=== PATIENT | female | born 1960 | race Caucasian/White ===

== ENCOUNTER 2019-02-15 18:31 | Emergency (ER) | payer OTHER ==
--- NOTE | 2019-02-15 19:31 | ERPHSYRPT ---
- History of Present Illness Time Seen by Provider: 02/15/19 19:16 Historian: patient Exam Limitations: no limitations Patient Subjective Stated Complaint: chest pain accross chest and accross back Triage Nursing Assessment: patient is alert and oriented x3, ambulates by self , lung sounds clear, hearts sounds strong, bowel sounds present x4, radial pulsesequal bilateral, pedal pulses present. Physician History: This is a 58-year-old white female who states that she's had a chronic recurrent GI bleed with history of diabetes type 2, congestive heart failure, GI bleed, coronary artery disease arrives with complaint of pain across her upper chest radiating to her left shoulder began today at about 9:00 last about an hour went away than one hour prior to arrival began having pain again patient states that she has had similar pain when her hemoglobin goes down she states she's gone down to 3 or 5 in the past with her hemoglobin. He states he has been short of breath no nausea no vomiting she does state that she feels shaky. Patient states she did not take any aspirin because she's been having a chronic and recurrent GI bleed. Past medical history includes diabetes type 2, congestive heart failure, GI bleed, coronary artery disease Past surgical history includes tonsillectomy, internal defibrillator, appendix, colon resection, hernia repair, , tubal ligation, CABG Social history denies tobacco alcohol or illicit drug use. Timing/Duration: today (9 AM today) Activities at Onset: none Quality: pressure Location: other (upper chest radiating to left shoulder) Severity of Pain-Max: moderate Severity of Pain-Current: mild Associated Symptoms: shortness of breath, No vomiting, No palpitations, No heartburn, No abdominal pain, No cough, No diaphoresis, No chills, No fever, No fatigue, No weakness, No swelling/lump in chest, No syncope, No rash, No headache, No dizziness, No edema Prior Chest Pain/Cardiac Workup: cardiac cath Nitro Today/Relief: no nitro taken today Aspirin Treatment Today: no aspirin today Allergies/Adverse Reactions: codeine Allergy (Verified 02/15/19 18:35) Hx Tetanus, Diphtheria Vaccination/Date Given: Yes Hx Influenza Vaccination/Date Given: Yes Hx Pneumococcal Vaccination/Date Given: Yes Immunizations Up to Date: Yes - Review of Systems Constitutional: No Fever, No Chills Eyes: No Symptoms Ears, Nose, & Throat: No Symptoms Respiratory: Dyspnea, No Cough, No Cyanosis, No Dyspnea on Exertion (MATTHEWS), No Stridor Cardiac: Chest Pain, No Edema, No Palpitations, No Syncope, No Orthopnea, No PND Abdominal/Gastrointestinal: No Abdominal Pain, No Nausea, No Vomiting, No Diarrhea Genitourinary Symptoms: No Dysuria Musculoskeletal: No Back Pain, No Neck Pain Skin: No Rash Neurological: No Dizziness, No Focal Weakness, No Sensory Changes Psychological: No Symptoms Endocrine: No Symptoms All Other Systems: Reviewed and Negative - Past Medical History Pertinent Past Medical History: Yes Cardiac History: Congestive Heart Failure, Coronary Artery Disease Endocrine Medical History: Diabetes Type II GI Medical History: GI Bleed - Past Surgical History Past Surgical History: Yes Cardiac: Internal Defibrillator Gastrointestinal: Appendectomy, Colon Resection, Hernia Repair Female Surgical History: Section, Tubal Ligation - Social History Smoking Status: Former smoker Drug Use: none Patient Lives Alone: No - Female History Hx Now: No - Nursing Vital Signs Nursing Vital Signs: Initial Vital Signs Temperature 98.6 F 02/15/19 18:32 Pulse Rate 72 02/15/19 18:32 Respiratory Rate 16 02/15/19 18:32 Blood Pressure 173/72 02/15/19 18:32 O2 Sat by Pulse Oximetry 98 02/15/19 18:32 Pain Scale Pain Intensity 8 - Physical Exam General Appearance: alert Eye Exam: PERRL/EOMI, eyes nml inspection Ears, Nose, Throat Exam: normal ENT inspection, moist mucous membranes Neck Exam: normal inspection, non-tender, supple, full range of motion Respiratory Exam: normal breath sounds, lungs clear, No respiratory distress Cardiovascular Exam: regular rate/rhythm, normal heart sounds, capillary refill <2 sec Gastrointestinal/Abdomen Exam: soft, No tenderness, No mass Back Exam: normal inspection Extremity Exam: normal inspection, normal range of motion Neurologic Exam: alert, oriented x 3, cooperative, television agent II-XII nml as tested, normal mood/affect, sensation nml, No motor deficits Skin Exam: normal color, warm, dry SpO2 Interpretation: normal (98%) SpO2: 98 - Course Nursing assessment & vital signs reviewed: Yes EKG Interpreted by Me: RATE (72 bpm), Sinus Rhythm, NORMAL AXIS, Other (EKG: Sinus rhythm with first-degree AV block, 72 beats per minute, complete right bundle branch block, ST depression V1 through V5, no old EKGs to compare) - Radiology Exams Chest X-ray Interpretation: Interpreted by me (no acute disease noted) Ordered Tests: Active Orders 24 hr Category Date Time Status EKG-ER Only STAT Care 02/15/19 18:51 Active IV Insertion STAT Care 02/15/19 18:51 Active IV Insertion-2nd Peripheral STAT Care 02/15/19 18:51 Active Oxygen-ED Only Venti-Mask 40% Care 02/15/19 20:20 Active Pulse Oximetry (ED) STAT Care 02/15/19 19:22 Active CHEST 1 VIEW (PORTABLE) Stat Exams 02/15/19 19:22 Taken AMYLASE Stat Lab 02/15/19 19:00 Completed CBC W DIFF Stat Lab 02/15/19 19:00 Completed CMP Stat Lab 02/15/19 19:00 Completed D-DIMER QUANTITATION Stat Lab 02/15/19 19:00 Completed LIPASE Stat Lab 02/15/19 19:00 Completed PROTIME WITH INR Stat Lab 02/15/19 19:00 Completed PTT Stat Lab 02/15/19 19:00 Completed TROPONIN Q3H Lab 02/15/19 19:00 Completed TROPONIN Q3H Lab 02/15/19 22:30 Ordered TROPONIN Q3H Lab 02/16/19 01:30 Ordered TROPONIN Q3H Lab 02/16/19 04:30 Ordered TROPONIN Q3H Lab 02/16/19 07:30 Ordered Medication Summary Generic Name Dose Route Start Last Admin Trade Name Freq PRN Reason Stop Dose Admin Sodium Chloride 1,000 mls @ 100 mls/hr 02/15/19 20:30 02/15/19 20:47 Sodium Chloride 0.9% 1000 Ml IV 03/17/19 20:29 100 mls/hr .Q10H MARCUS Administration Lab/Rad Data: Laboratory Result Diagrams 02/15/19 19:00 02/15/19 19:00 Laboratory Results 02/15/19 02/15/19 02/15/19 Range/Units 19:00 19:00 19:00 WBC (4.0-10.5) K/mm3 RBC (4.1-5.4) M/mm3 Hgb (12.0-16.0) gm/dl Hct (35-47) % MCV (78-100) fl MCH (26-32) pg MCHC (32-36) g/dl RDW (11.5-14.0) % Plt Count (150-450) K/mm3 MPV (6-9.5) fl Gran % (36.0-66.0) % Eos # (Auto) (0-0.5) Absolute Lymphs (auto) (1.0-4.6) Absolute Monos (auto) (0.0-1.3) Lymphocytes % (24.0-44.0) % Monocytes % (0.0-12.0) % Eosinophils % (0.00-5.0) % Basophils % (0.0-0.4) % Absolute Granulocytes (1.4-6.9) Basophils # (0-0.4) PT (9.95-12.35) SECONDS INR (0.8-3.0) APTT (25.3-37.0) SECONDS D-Dimer (215-500) ng/mL Sodium (137-145) mmol/L Potassium (3.5-5.1) mmol/L Chloride (98-107) mmol/L Carbon Dioxide (22-30) mmol/L Anion Gap (5-15) MEQ/L BUN (7-17) mg/dL Creatinine (0.52-1.04) mg/dL Estimated GFR ML/MIN Glucose (74-106) mg/dL Calcium (8.4-10.2) mg/dL Total Bilirubin (0.2-1.3) mg/dL AST (14-36) U/L ALT (0-35) U/L Alkaline Phosphatase (38-126) U/L Troponin I < 0.012 (0.000-0.034) ng/mL Serum Total Protein (6.3-8.2) g/dL Albumin (3.5-5.0) g/dL Amylase 66 (30-110) U/L Lipase 168 (23-300) U/L ABO Group A Rh Factor POSITIVE Antibody Screen POSITIVE (NEGATIVE) 02/15/19 02/15/19 02/15/19 Range/Units 19:00 19:00 19:00 WBC 8.7 (4.0-10.5) K/mm3 RBC 2.23 L (4.1-5.4) M/mm3 Hgb 5.8 L* (12.0-16.0) gm/dl Hct 18.6 L (35-47) % MCV 83.4 (78-100) fl MCH 26.0 (26-32) pg MCHC 31.2 L (32-36) g/dl RDW 14.6 H (11.5-14.0) % Plt Count 471 H (150-450) K/mm3 MPV 8.3 (6-9.5) fl Gran % 73.6 H (36.0-66.0) % Eos # (Auto) 0.13 (0-0.5) Absolute Lymphs (auto) 1.56 (1.0-4.6) Absolute Monos (auto) 0.57 (0.0-1.3) Lymphocytes % 18.0 L (24.0-44.0) % Monocytes % 6.6 (0.0-12.0) % Eosinophils % 1.5 (0.00-5.0) % Basophils % 0.3 (0.0-0.4) % Absolute Granulocytes 6.39 (1.4-6.9) Basophils # 0.03 (0-0.4) PT 12.3 (9.95-12.35) SECONDS INR 1.09 (0.8-3.0) APTT 35.2 (25.3-37.0) SECONDS D-Dimer 513 H* (215-500) ng/mL Sodium 136 L (137-145) mmol/L Potassium 4.6 (3.5-5.1) mmol/L Chloride 106 (98-107) mmol/L Carbon Dioxide 22 (22-30) mmol/L Anion Gap 13.3 (5-15) MEQ/L BUN 24 H (7-17) mg/dL Creatinine 0.89 (0.52-1.04) mg/dL Estimated GFR > 60.0 ML/MIN Glucose 257 H (74-106) mg/dL Calcium 9.3 (8.4-10.2) mg/dL Total Bilirubin 0.20 (0.2-1.3) mg/dL AST 12 L (14-36) U/L ALT 12 (0-35) U/L Alkaline Phosphatase 46 (38-126) U/L Troponin I (0.000-0.034) ng/mL Serum Total Protein 7.1 (6.3-8.2) g/dL Albumin 3.6 (3.5-5.0) g/dL Amylase (30-110) U/L Lipase (23-300) U/L ABO Group Rh Factor Antibody Screen (NEGATIVE) - Progress Progress: improved Air Movement: fair Progress Note: 02/15/19 20:17 This is a 58-year-old white female with history of chronic GI bleed, diabetes, congestive heart failure, coronary artery disease. She arrives with complaint of shortness chest pain all day she has had some shortness of breath she states she had at our of upper chest pain radiating to her left shoulder beginning at 9:00 lasting 1 hour weak symptoms are one hour prior to arrival. Patient states that she has had a chronic GI bleed she's required blood transfusions in the past when she has had the same symptoms patient with an EKG remarkable for sinus rhythm with first-degree block complete right bundle branch block, ST depression V1 through V5 Patient with no EKGs for comparison severe. Patient's d-dimer slightly elevated at 513 patient's hemoglobin 5.8 hematocrit 18.6 white cells 8.7 platelets 471 chemistry sodium 136 potassium 4.6 chloride 106 bicarbonate 22 BUN 24 creatinine 0.89 glucose 257 troponin less than 0.012 Chest x-ray pacer in place otherwise no acute disease process noted. I've had the labs type and crossmatched the patient's for 2 units packed red cells however unfortunately, they state that there is no blood available here secondary to an antibody in the blood. Will go ahead and give the patient oxygen Ventimask 40% will start normal saline at 100. Will contact [place] where the patient's family doctor is and where her master scheduler will be available. I have not given the patient aspirin at this time . 02/15/19 22:[address] Dueñas through [place] one call. I have discussed the case with him we also talked with Dr. Webber the master scheduler. To a master scheduler Dr. Webber recommended that we do not give this patient aspirin or heparin she felt that the patient really needs to receive a transfusion which will improve her symptoms and it would be unlikely anybody would take her to any procedure without having her hemoglobin up to at least 8. 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 Dr. Dueñas had discussed this with the GI physician as well it was felt that the patient needed to be transferred to [facility].they also states that the patient has a chronic AV malformation several of them as well as the ejection fraction of 20-30%. I contacted [facility] one call I discussed the patient's case with Dr. Riddle and he has accepted the patient in transfer. Patient is given O2 at 40% Ventimask and normal saline 100 mL per hour she is improved. Will arrange transfer as soon as [facility] called back with a bed. Impression 1 chest pain. 2. Anemia. 3. History of AV malformation and GI bleed. 4. Anti-Shy antibody. 02/15/19 22:34 - Departure Departure Disposition: Transfer ([facility]) Clinical Impression: History of anti-[place] antibody, Chronic GI bleeding, AV (angiodysplasia malformation of colon) Chest pain Qualifiers: Chest pain type: unspecified Qualified Code(s): R07.9 - Chest pain, unspecified Anemia Qualifiers: Anemia type: unspecified type Qualified Code(s): D64.9 - Anemia, unspecified Condition: Fair Critical Care Time: No Referrals: Provider,Unknown [Primary Care Provider] -
[2019-02-15 19:33] LABS: INR 1.09 (0.8-3.0); PROTIME 12.3 SECONDS (9.95-12.35)
[2019-02-15 19:35] LABS: PTT 35.2 SECONDS (25.3-37.0)
[2019-02-15 19:37] LABS: ALBUMIN 3.6 g/dL (3.5-5.0); ALKALINE PHOSPHATASE 46 U/L (38-126); ANION GAP 13.3 MEQ/L (5-15); BLOOD UREA NITROGEN 24 mg/dL (7-17); CHLORIDE 106 mmol/L (98-107); Calcium 9.3 mg/dL (8.4-10.2); Carbon Dioxide 22 mmol/L (22-30); Creatinine 1 0.89 mg/dL (0.52-1.04); Glucose 257 mg/dL (74-106); Potassium 4.6 mmol/L (3.5-5.1); SGOT/AST 12 U/L (14-36); SGPT/ALT 12 U/L (0-35); SODIUM 136 mmol/L (137-145); Total Protein 7.1 g/dL (6.3-8.2)
[2019-02-15 19:38] LABS: AMYLASE 66 U/L (30-110); LIPASE 168 U/L (23-300)
[2019-02-15 19:41] LABS: BASOPHIL % 0.3 % (0.0-0.4); Basophil (Absolute #) 0.03 (0-0.4); Eosinophil % 1.5 % (0.00-5.0); Eosinophil (Absolute #) 0.13 (0-0.5); Granulocyte Absolute (ANC) 6.39 (1.4-6.9); Granulocytes % 73.6 % (36.0-66.0); Hematocrit 18.6 % (35-47); Lymphocyte (Absolute #) 1.56 (1.0-4.6); Mean Cell Volume 83.4 fl (78-100); Mean Corpuscular Hgb Concent. 31.2 g/dl (32-36); Mean Platelet Volume 8.3 fl (6-9.5); Monocyte (Absolute #) 0.57 (0.0-1.3); Monocytes % 6.6 % (0.0-12.0); Platelet Count 471 K/mm3 (150-450); Red Blood Count 2.23 M/mm3 (4.1-5.4); Red Cell Distribution Width 14.6 % (11.5-14.0); White Blood Count 8.7 K/mm3 (4.0-10.5)
[2019-02-15 19:42] LABS: Hemoglobin 5.8 gm/dl (12.0-16.0)
[2019-02-15 20:38] LABS: ABO TYPING A; RH TYPING POSITIVE
[2019-02-15 20:39] LABS: Antibody Screen POSITIVE (NEGATIVE)
[2019-02-15] MEDS ORDERED: Sodium Chloride 0.9% 1000 ML 1,000 ML ONE (20:46)
[2019-02-15] MEDS: Sodium Chloride 0.9% 1000 ML 1,000 ML IV SCH (20:47)
[2019-02-15 23:17] VITALS: PULSE 72; O2SAT 99
[2019-02-16] MEDS ORDERED: Ativan 2 MG/1 ML VIAL ONE (00:14)
[2019-02-16] MEDS: Ativan 2 MG/1 ML VIAL IV ONE (00:22)
[2019-02-16 00:46] VITALS: BP 175/77
--- NOTE | 2019-02-16 09:07 | XRAY ---
Indication: Chest pain. Comparison: None Portable chest hyperinflated and clear. Heart is not enlarged demonstrating CABG surgery and left-sided AICD. Bony thorax intact with mild degenerative changes. Impression: Nonacute hyperinflated chest with chronic features.
== END 2019-02-16 00:40 | disposition short-term general hospital (02) ==
LOC: ED 18:31
DX: R07.9 Chest pain, unspecified (principal); D64.9 Anemia, unspecified; Q27.30 Arteriovenous malformation, site unspecified; K92.2 Gastrointestinal hemorrhage, unspecified
CPT/HCPCS: 36000; 36415; 71045; 80053; 82150; 83690; 84484; 85025; 85379; 85610; 85730; 86850; 86900; 86901; 86922; 93005; 94760; 96360; 96361; 96374; 99285; J2060